=== PATIENT | male | born 1955 | race Caucasian/White ===

== ENCOUNTER 2024-05-11 13:32 | Inpatient (IN) | payer MEDICARE, OTHER, SELFPAY ==
[2024-05-11] VITALS (27 sets, daily range): BP systolic 66–157; BP diastolic 46–146; BMI 28.9; BMI 28.0
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
--- NOTE | 2024-05-11 09:37 | EDRN ---
Pt reports he always takes his BP on L arm, reports his last BP he recorded was approx 90/60. Pt unaware of BP on R arm being elevated.
[2024-05-11 09:47] LABS: % Basophils 0.2 % (0-2); % Immature Granulocytes 0.6 % (0-0.5); % Lymphocytes 9.8 % (20.5-51.1); % Monocytes 6.5 % (1.7-9.3); % Neutrophils 82.9 % (42.2-75.2); Absolute Immature Granulocytes 0.1 10^3/uL (0-0.05); Absolute Lymphocytes 1.3 10^3/uL (1.2-3.4); Absolute Monocytes 0.8 10^3/uL (0.1-0.6); Absolute Neutrophils 10.5 10^3/uL (1.4-6.5); Hematocrit 43.3 % (39.0-52.0); Mean Corp Hgb Conc. 32.3 g/dL (33.0-37.0); Mean Corpuscular Hgb 28.9 pg (27.0-31.0); Mean Corpuscular Volume 89.3 fL (80.0-94.0); Mean Platelet Volume 11.3 fL (7.4-10.4); Nucleated Red Blood Cells % 0 % (-); Platelet Count 249 10^3/uL (130-400); Red Blood Cell Count 4.85 10^6/uL (4.70-6.10); Red Cell Dist. Width 12.8 % (11.5-14.5); White Blood Cell Count 12.7 10^3/uL (4.8-10.8)
[2024-05-11 10:05] LABS: ALT (SGPT) 20 U/L (0-50); AST (SGOT) 21 U/L (17-59); Albumin 3.8 g/dl (3.5-5.0); Alkaline Phosphatase 82 U/L (38-126); Blood Urea Nitrogen 53 mg/dl (9-20); Calcium 8.8 mg/dl (8.4-10.2); Carbon Dioxide 16 mmol/L (22-30); Chloride 100 mmol/L (98-107); Estimated Creatinine Clearance 46 ml/min; Glucose 306 mg/dl (70-99); Potassium 4.8 mmol/L (3.5-5.1); Sodium 135 mmol/L (135-145); Total Bilirubin 0.8 mg/dl (0.2-1.3); Total Protein 6.5 g/dl (6.3-8.2); eGFR 54.07
[2024-05-11 10:18] LABS: NT-proBNP 9210 pg/ml
[2024-05-11] MEDS: LOW STRENGTH ASPIRIN 324 MG PO (10:33)
[2024-05-11] MEDS: LASIX 20 MG IV (10:55)
[2024-05-11 10:57] LABS: APTT 30.5 Sec (23.4-35.0)
[2024-05-11] MEDS: HEPARIN 4000 UNITS IV (10:58)
[2024-05-11] MEDS: HEPARIN 25000 UNITS/250 ML IV (11:00)
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
[2024-05-11] MEDS: LASIX 40 MG IV (16:40)
[2024-05-11 17:18] LABS: APTT 31.6 Sec (23.4-35.0)
[2024-05-11 19:43] LABS: Glucose - Point of Care 246 mg/dl (70-99)
[2024-05-11] MEDS: NOVOLOG FLEXPEN-LOW RESISTANCE SC (19:44)
[2024-05-11] MEDS: NOVOLOG FLEXPEN-LOW RESISTANCE 2 UNITS SC (19:45)
[2024-05-11 20:04] LABS: HDL Cholesterol 34 mg/dl; LDL Cholesterol, Calculated 115 mg/dl; Total Cholesterol 178 mg/dl (50-199); Triglyceride 149 mg/dl (10-149); Very Low Density Lipoprotein 29 mg/dl (0-30)
[2024-05-11] MEDS: CRESTOR 20 MG PO (20:22)
[2024-05-11 21:50] LABS: Glucose - Point of Care 219 mg/dl (70-99)
[2024-05-12] VITALS (23 sets, daily range): BP systolic 92–110; BP diastolic 60–80; PULSE 99; O2SAT 95; BMI 27.8
[2024-05-12] LABS: APTT 34.9 Sec (23.4-35.0)
--- NOTE | 2024-05-12 01:00 | PTCARENOTE ---
Pt admitted to room 2253 Pt AAOx3 . Pt. was able to transfer himself from stretcher to bed with minimal assist. Pt on Heparin gtt. Oriented to room. Safety measures in place.
[2024-05-12 06:51] LABS: APTT 41.5 Sec (23.4-35.0)
[2024-05-12 06:55] LABS: % Basophils 0.3 % (0-2); % Immature Granulocytes 1.5 % (0-0.5); % Lymphocytes 17.2 % (20.5-51.1); % Monocytes 8.6 % (1.7-9.3); % Neutrophils 72.4 % (42.2-75.2); Absolute Immature Granulocytes 0.2 10^3/uL (0-0.05); Absolute Neutrophils 8.6 10^3/uL (1.4-6.5); Hematocrit 38.1 % (39.0-52.0); Hemoglobin 13.3 g/dL (13.0-18.0); Mean Corp Hgb Conc. 34.9 g/dL (33.0-37.0); Mean Corpuscular Hgb 29.2 pg (27.0-31.0); Mean Corpuscular Volume 83.7 fL (80.0-94.0); Mean Platelet Volume 11.4 fL (7.4-10.4); Nucleated Red Blood Cells % 0 % (-); Platelet Count 210 10^3/uL (130-400); Red Blood Cell Count 4.55 10^6/uL (4.70-6.10); Red Cell Dist. Width 12.8 % (11.5-14.5); White Blood Cell Count 11.8 10^3/uL (4.8-10.8)
[2024-05-12 07:22] LABS: ALT (SGPT) 15 U/L (0-50); AST (SGOT) 21 U/L (17-59); Albumin 3.4 g/dl (3.5-5.0); Alkaline Phosphatase 75 U/L (38-126); Blood Urea Nitrogen 57 mg/dl (9-20); Calcium 8.7 mg/dl (8.4-10.2); Carbon Dioxide 17 mmol/L (22-30); Chloride 103 mmol/L (98-107); Estimated Creatinine Clearance 58 ml/min; Glucose 214 mg/dl (70-99); Potassium 4.3 mmol/L (3.5-5.1); Sodium 135 mmol/L (135-145); Total Bilirubin 0.6 mg/dl (0.2-1.3); Total Protein 6.2 g/dl (6.3-8.2); eGFR > 60.00
[2024-05-12] MEDS: HEPARIN 25000 UNITS/250 ML IV ×2 (07:32→21:58)
[2024-05-12 08:28] LABS: Glucose - Point of Care 237 mg/dl (70-99)
[2024-05-12] MEDS: NOVOLOG FLEXPEN-LOW RESISTANCE 2 UNITS SC ×3 (08:28→16:38)
[2024-05-12] MEDS: LASIX 40 MG IV ×2 (08:29→16:34)
[2024-05-12] MEDS: LOW STRENGTH ASPIRIN 81 MG PO (08:29)
[2024-05-12 08:58] LABS: Glycohemoglobin (HgbA1c) 8.6 % (4.0-5.6)
--- NOTE | 2024-05-12 09:19 | W.PN.CD ---
Today's Communication / Plan
-
Continue diuresis
Progress to cath today. Reviewed case in detail with Dr. Mishra
Cath is high risk given his active heart failure with low blood pressure and rising troponin
Impression / Plan
-
NSTEMI vs non-ischemic myocardial injury from heart failure:
- THe rising troponin is concerning. Will progress to cath today
- ASA/heparin
-continue IV heparin, which requires intensive monitoring
-will start statin, check lipids in AM. Check HGBA1C.
-will need heart catheterization; will arrange for tomorrow pending reassessment of patient and renal function
Acute HFrEF:
-agree with IV diuresis, which requires intensive monitoring- 40 mg IV BID
-weights, I/O's, BMP
-HF education
- Will add meds slowly after coronary status evaluated/treated and hemodynamics clarified
- BP soft. Likely will use HERNANDO-I over ARNI
ICM EF 10-15%:
-meds currently limited by BP and renal function
-will assess pricing for GDMT, so that it can be added when appropriate
Renal dysfunction:
-unknown baseline
-monitor with diuresis
DM:
-hold metformin for cath
-check HGBa1C
-otherwise, management per primary team
Subjective:
Dyspnea is improved.
Physical Exam
Vital Signs/Labs
Vital Signs
Temp Pulse Resp BP Pulse Ox
98.3 F 94 16 94/61 93
05/12/24 08:23 05/12/24 08:23 05/12/24 08:23 05/12/24 03:50 05/12/24 08:23
05/11/24 05/12/24 05/13/24
06:59 06:59 06:59
Actual Weight 80.4 kg
05/12/24 06:18
05/12/24 06:18
APTT 41.5 Sec (23.4-35.0) H 05/12/24 06:18
Triglycerides 149 mg/dl (10-149) 05/11/24 19:40
LDL Cholesterol, Calc 115 mg/dl 05/11/24 19:40
VLDL Cholesterol, Calc 29 mg/dl (0-30) 05/11/24 19:40
HDL Cholesterol 34 mg/dl 05/11/24 19:40
05/11/24
09:33
Mcj-G-Uiudraudjow Pept 9210
LAB Results
05/11/24 05/11/24 05/11/24
09:33 12:37 16:52
Troponin I 1.340 H* 1.260 H* 1.600 H* D
05/11/24 05/11/24
19:40 23:27
Troponin I 1.920 H* 2.110 H*
Physical Exam
Constitutional: No acute distress
EENT: Anicteric
Cardiovascular: Rhythm & rate is regular
Respiratory: Respiratory effort normal and Crackles Present
GI: Soft, Distention absent and Flat
Neuro/Psych: AO x 3 and Motor deficits absent
Data Reviewed
-
Date of Service: May 12, 2024
--- NOTE | 2024-05-12 09:45 | PTCARENOTE ---
Assumed care of pt from night RN. Pt received awake and alert, Ox3. VSS, CM shows NSR with BBB, POX 96% on RA. Fine crackles noted bibasilarly. Heparin infusing through RAC at 1600 units/hr, next PTT due at 1315. Pt remains NPO for CC today.
--- NOTE | 2024-05-12 11:06 | CM ---
Chart reviewed. Patient is independent of ADLS, lives with his in a [address], 2 [facility], 0 DME. Plan is for the patient to return home. CM to follow
--- NOTE | 2024-05-12 11:06 | CM ---
Pricing on Farxiga 10mg daily is $11 for a 30 day supply
Jardiance 10mg daily is $11 for a 30 day supply.
Entresto 24/26mg BID is covered at $157.55 for a 30 day supply.
Patient is agreeable to cost. I placed a free 30 day coupon in the patient's red discharge folder.
[2024-05-12 12:20] LABS: Glucose - Point of Care 218 mg/dl (70-99)
[2024-05-12 14:04] LABS: APTT 51.6 Sec (23.4-35.0)
--- NOTE | 2024-05-12 15:45 | ITS.CL.CATH ---
Litigation Support Analyst - Catheterization
Cardiac Catheterization
Procedure Report:
CARDIAC CATHETERIZATION REPORT
Date of Procedure: 05/12/2024
Referring: Acosta Sousa MD
Indication: Severe left ventricular dysfunction with mildly elevated troponin levels
�
HEMODYNAMIC DATA (RHC performed at weight 177 pounds)
AO: 90/62
LV: 90/12
PCWP: 14
PA: 30/15
RV: 30/12
RA: 8
Oximetry: Ao 94%, PA 65%, cardiac output 4.6, cardiac index 2.4
�
LEFT VENTRICULOGRAPHY: Anterolateral and apical akinesis with severe inferior hypokinesis. The estimated LVEF is 25% with mild mitral regurgitation
�
CORONARY ANGIOGRAPHY
Dominance: Right
Left Main: Calcified without stenosis
LAD: The LAD is severely calcified. There is 80% LAD stenosis just distal to the takeoff of the first septal home health physical therapist. There is a relatively long 80% mid LAD stenosis. In the distal LAD there is a diseased segment estimated to be 70% in
severity which happens to be within an endomyocardial bridge segment with a dynamic stenosis exceeding 90%. The apical LAD tapers to occlusion proximal to the LV apex. The first diagonal branch is moderate in distribution with severe diffuse
disease. The second diagonal branch is tiny.
Circumflex: There is 80% mid circumflex stenosis distal to the takeoff of a large OM1 and proximal to the takeoff of a large OM 2. OM1 has 50% ostial and 70-80% mid stenoses. OM 2 has 40% proximal stenosis and focal 70% mid stenosis. The distal
circumflex terminates with a single diffusely diseased posterolateral branch
RCA: 80% proximal stenosis with occlusion of the RCA in the midportion. There are faint collaterals to a diseased RPDA and several diseased RPL vessels
�
Closure Device: None-the procedure was performed via the right radial artery and right femoral vein
�
Radiation dose (mGy): 343
DAP (cm2.Gy): 31.8
Fluoroscopy time: 2.5 minutes
�
CONCLUSIONS:
1. Normal filling pressures with no pulmonary hypertension
2. The patient appears euvolemic to dry. His ideal weight would be 177 pounds
3. Anterolateral and apical akinesis with severe inferior hypokinesis with EF 25%
4. Mild mitral regurgitation
5. Severe calcific multisegment triple-vessel CAD as described
�
RECOMMENDATIONS: Revascularization options are very limited here. He is not likely a candidate for any type of surgical revascularization. There is no clear benefit of high risk multivessel stenting for him. At this point recommend medical
therapy with consideration of referral for destination LVAD if CHF cannot be managed medically. Medication options are limited with borderline hypotension at baseline. There is no clear role for biventricular pacing based on his electrocardiogram.
Consideration can be given to ICD placement if LVEF remains severely depressed after a period of medical therapy.
�
Copy to: Acosta Sousa MD, Bert Kelly IV, MD
�
Gene Mishra MD, [facility], [facility]
[2024-05-12] MEDS: NSS 1000 IV (15:57)
--- NOTE | 2024-05-12 16:11 | W.PN.HOSP.TC ---
Today's Communication/Plan
-
Cont IV diuresis
ICD as per cardiology
Hep ggt
Antiplatelets as per cards
statin
anticipate initiation of BB, SGTL2i and ARNI if BP tolerates along with diuresis
Assessment / Plan
Assessment / Plan
Physical Exam
General: Well Developed, Well Nourished and No Apparent Distress
HEENT: NormoCephalic
Respiratory: Crackles (Mild bilateral bases)
Cardiac: S1/S2 and Regular Rhythm
GI: Soft and Non Tender
Musculoskeletal: No Clubbing
Skin: Warm
Neuro: Awake, Alert, Oriented and AO x 3
Hematologic/Lymphatic: No Lymphadenopathy
Psych: Calm
68-year-old male with past medical history of hypertension, diabetes now presents for worsening dyspnea exertion, admitted for NSTEMI and acute HFrEF.
PLAN:
#NSTEMI
#CAD
-Left heart cath 12/evere triple-vessel disease, revascularization options are limited; not likely candidate for surgical revascularization;
� Medical therapy with consideration of referral for destination LVAD if CHF cannot be managed medically
� ASA
� Statin
� Follow-up hemoglobin A1c�8.6
- Cont hep ggt x 48 hours or until cardiology decides
#Acute HFrEF
#EF 10 to 15%
� Continue IV diuresis, monitor BMP, renal function
� Left heart cath as above
� May need referral for destination LVAD if CHF cannot be managed medically
� ICD as per cardiology
# EDIS
� Most likely cardiorenal
� Monitor with diuresis
#Hypertension
� Hold lisinopril in setting of unknown baseline renal function along with lower blood pressures
� Monitor with diuresis
#Diabetes, type II
� Hold metformin
� Follow-up hemoglobin A1c�8.6
� Will benefit from stronger regimen, SGLT2 inhibitor
� Insulin sliding scale
DVT prophylaxis
� Heparin drip
Total time spent on today's encounter was 51 minutes which included time spent in counseling the patient/family regarding diagnosis and treatment plan as listed above, goals of care, and symptom management. Case was discussed with nursing staff,
specialists, and care coordinators/case management. All labs and imaging personally reviewed by me. Remainder the time spent in detailed review of previous records, lab data, imaging, and other medical provider documentation.
Anticipated Discharge: 24 - 48 hours
Subjective/Interval History
-
Date of Service: May 12, 2024
for [facility] today
Diuresing
no acute events overnight
Objective Data
-
Labs:
Laboratory Results
05/12/24 05/12/24 05/12/24
06:18 13:07 20:00
WBC 11.8 H
Hgb 13.3
Hct 38.1 L
Plt Count 210
APTT 41.5 H 51.6 H Pending
Sodium 135
Potassium 4.3
Chloride 103
Carbon Dioxide 17 L
BUN 57 H
Creatinine 1.1
Glucose 214 H
Calcium 8.7
Total Bilirubin 0.6
AST 21
ALT 15
Alkaline Phosphatase 75
Vital Signs:
Vital Signs
Temp Pulse Resp BP Pulse Ox
97.6 F 92 18 97/62 95
05/12/24 12:12 05/12/24 14:00 05/12/24 12:12 05/12/24 12:12 05/12/24 12:12
I&O
05/11/24 05/12/24 05/13/24
06:59 06:59 06:59
Intake Total 135 / 135
Output Total 1150 / 1150
Balance -1015 / -1015
Review of Systems
-
History Source: Patient
All other systems: Not reviewed unless documented
Data Reviewed
-
Diagnostic Radiology: Report Reviewed by me
Medical Tests (Nuc Med, Echo etc): Report Reviewed by me
Labs: Labs Reviewed by me
[2024-05-12 16:43] LABS: Glucose - Point of Care 213 mg/dl (70-99)
[2024-05-12] MEDS: CRESTOR 20 MG PO (17:12)
[2024-05-12 20:43] LABS: APTT 26.3 Sec (23.4-35.0)
[2024-05-12 21:42] LABS: Glucose - Point of Care 169 mg/dl (70-99)
[2024-05-13 03:58] VITALS: BP 97/64
[2024-05-13 04:13] VITALS: BMI 27.2
[2024-05-13 04:37] LABS: Hematocrit 39.2 % (39.0-52.0); Hemoglobin 13.6 g/dL (13.0-18.0); Mean Corp Hgb Conc. 34.7 g/dL (33.0-37.0); Mean Corpuscular Hgb 29.1 pg (27.0-31.0); Mean Corpuscular Volume 83.9 fL (80.0-94.0); Mean Platelet Volume 11.2 fL (7.4-10.4); Platelet Count 215 10^3/uL (130-400); Red Blood Cell Count 4.67 10^6/uL (4.70-6.10); Red Cell Dist. Width 12.7 % (11.5-14.5); White Blood Cell Count 9.8 10^3/uL (4.8-10.8)
[2024-05-13 05:00] LABS: Blood Urea Nitrogen 51 mg/dl (9-20); Calcium 8.6 mg/dl (8.4-10.2); Carbon Dioxide 20 mmol/L (22-30); Chloride 102 mmol/L (98-107); Estimated Creatinine Clearance 54 ml/min; Glucose 189 mg/dl (70-99); Potassium 4.2 mmol/L (3.5-5.1); Sodium 136 mmol/L (135-145); eGFR > 60.00
--- NOTE | 2024-05-13 06:02 | PTCARENOTE ---
Addendum entered by Heidy Mcneill RN 05/13/24 06:04:
Pt place on O2 2L to maintain his PlOx above 92% overnight
Original Note:
pt in NSR on monitor. resting comfortable, denies pain or SOB. Heparin gtt restarted per order. Safety measures in place
[2024-05-13 07:52] VITALS: BP 92/80
[2024-05-13 07:58] LABS: Glucose - Point of Care 196 mg/dl (70-99)
[2024-05-13] MEDS: NOVOLOG FLEXPEN-LOW RESISTANCE 1 UNITS SC (08:34)
[2024-05-13] MEDS: LASIX 40 MG IV (08:35)
[2024-05-13 08:36] VITALS: BP 108/70
[2024-05-13] MEDS: LOW STRENGTH ASPIRIN 81 MG PO (08:37)
[2024-05-13] MEDS: FLUSH (NSS) 1 FLUSH IV (08:37)
--- NOTE | 2024-05-13 09:17 | W.PN.CD ---
Today's Communication / Plan
-
Home today. Home on current meds (I resumed Lisinopril and added metoprolol ER and moved to PO furosemide)
As outpatient will be adding SGLT2-I and MRA and titrate BB nad HERNANDO-I to max dose. Later if BP room may try ARNI over HERNANDO-I
Hope his PCP will start Ozempic for his DM/HF/CAD
Once on max meds will check LVEF and see if an ICD will be offered
F/u up with me in 1 week (see discharge section).
55 min spent today with extensive education / counselling with pt / family etc.
Impression / Plan
-
NSTEMI vs non-ischemic myocardial injury from heart failure:
- Severe CAD at cath, no clear culprit
- Still hard to know if this was a NSTEMI or non-ischemic myocardial injury from heart failure. I favor a NSTEMI c/b acute on chronic HF as the best discharge diagnosis
- He will need aggressive treatment for HF and CAD
Acute HFrEF, severe reduction in LVEF
- Dry weight 177 pounds
Severe 3 V CAD, not amenable to CABG, no clear single lesion culprit for PCI
Ischemic cardiomyopathy, severe
- He will be an ICD candidst
Mitral regurgitation, moderate at echo and after diuresis mild at cath
Renal: Cr 1.4 on admit and after diuresis 1.1-1.2
Mixed hyperlipidemia, now on statin, goal LDL at least less than 70
DM
- I told pt that he should ask his PCP to stop his glipizide and start him on Ozempic
BMI 27
Subjective:
Dyspnea is improved. No cath complications
Data:
Echo 05/11/2024:
Severely reduced left ventricular systolic function.
Left ventricular ejection fraction is 10-15% by Obregon's method.
The anterolateral morin contract the best. The rest of the LV is akinetic to
severely hypokinetic.
Moderate mitral regurgitation.
Estimated PASP 40-45 mmHg with estimated RA of 3 mmHg.
No prior study available for comparison.
Cath 05/12/2024:
HEMODYNAMIC DATA (RHC performed at weight 177 pounds)
AO: 90/62
LV: 90/12
PCWP: 14
PA: 30/15
RV: 30/12
RA: 8
Oximetry: Ao 94%, PA 65%, cardiac output 4.6, cardiac index 2.4
�
LEFT VENTRICULOGRAPHY: Anterolateral and apical akinesis with severe inferior hypokinesis. The estimated LVEF is 25% with mild mitral regurgitation
�
CORONARY ANGIOGRAPHY
Dominance: Right
Left Main: Calcified without stenosis
LAD: The LAD is severely calcified. There is 80% LAD stenosis just distal to the takeoff of the first septal cryptographic clerk. There is a relatively long 80% mid LAD stenosis. In the distal LAD there is a diseased segment estimated to be 70% in
severity which happens to be within an endomyocardial bridge segment with a dynamic stenosis exceeding 90%. The apical LAD tapers to occlusion proximal to the LV apex. The first diagonal branch is moderate in distribution with severe diffuse
disease. The second diagonal branch is tiny.
Circumflex: There is 80% mid circumflex stenosis distal to the takeoff of a large OM1 and proximal to the takeoff of a large OM 2. OM1 has 50% ostial and 70-80% mid stenoses. OM 2 has 40% proximal stenosis and focal 70% mid stenosis. The distal
circumflex terminates with a single diffusely diseased posterolateral branch
RCA: 80% proximal stenosis with occlusion of the RCA in the midportion. There are faint collaterals to a diseased RPDA and several diseased RPL vessels
�
Physical Exam
Vital Signs/Labs
Vital Signs
Temp Pulse Resp BP Pulse Ox
98.1 F 94 18 108/70 97
05/13/24 07:55 05/13/24 08:45 05/13/24 07:55 05/13/24 08:36 05/13/24 07:55
05/12/24 05/13/24 05/14/24
06:59 06:59 06:59
Actual Weight 80.4 kg 78.7 kg
05/13/24 04:06
05/13/24 04:06
APTT 32.0 Sec (23.4-35.0) 05/13/24 04:06
Triglycerides 149 mg/dl (10-149) 05/11/24 19:40
LDL Cholesterol, Calc 115 mg/dl 05/11/24 19:40
VLDL Cholesterol, Calc 29 mg/dl (0-30) 05/11/24 19:40
HDL Cholesterol 34 mg/dl 05/11/24 19:40
05/11/24
09:33
Gfy-[id number]-Oplaatupdeq Pept 9210
LAB Results
05/11/24 05/11/24 05/11/24
09:33 12:37 16:52
Troponin I 1.340 H* 1.260 H* 1.600 H* D
05/11/24 05/11/24 05/12/24
19:40 23:27 14:38
Troponin I 1.920 H* 2.110 H* 2.010 H*
Physical Exam
Constitutional: No acute distress and Comfortable
EENT: Anicteric
Cardiovascular: Rhythm & rate is regular and Pedal edema is absent
Respiratory: Respiratory effort normal and Lungs clear to auscul.
GI: Distention absent
Neuro/Psych: AO x 3
Other: Cath Site (no hematoma/bleeding)
Data Reviewed
-
Date of Service: May 13, 2024
--- NOTE | 2024-05-13 10:33 | W.HF.CON ---
Heart Failure
- LV Function
Left ventricular function study result: LV Ejection fraction </= 35%
Ejection Fraction Percentage: 10-15
- ARNI
Patient already on ARNI: No
Heart Failure ARNI Contraindication: Hypotension
- ACEI/ARB
Patient already on ACEI/ARB: Yes
- Beta Shyla
Patient already on Evidence Based Beta Shyla: Yes
- Mineralocorticord Receptor Antagonist
Patient already on MRA: No
Heart Failure MRA Contraindication: Hypotension
- SGLT-2 Inhibitor
Patient already on SGLT-2 Inhibitor: No
Heart Failure SGLT-2 Inhibitor Contraindication: Patient Refusal
- NYHA CHF Classification
NYHA CHF Classification Level: Class III - Symptoms w/ min exertion, interferes w/ nml daily activity
- ACC/AHA Stage
ACC/AHA Stage: Stage C: Symptomatic Heart Failure
--- NOTE | 2024-05-13 11:00 | PTCARENOTE ---
Received patient this morning oob in the chair, denies any chest pain or sob. IV heparin infusing at 1200 units/hr. Patient seen by cardiology and is ok for discharge home on PO medications. Hospitalist now in and will discharge the patient, family
at the bedside.
[2024-05-13 12:11] VITALS: BP 104/72
--- NOTE | 2024-05-13 13:46 | W.PN.HOSP.TC ---
Addendum entered and electronically signed by Rob Byrd MD 05/14/24 16:18:
[id number]
Original Note:
Today's Communication/Plan
-
Aspirin
0 back lisinopril
Add metoprolol
Add p.o. furosemide
SGLT2-I and MRA and titrate BB nad HERNANDO-I to max dose. outpt
Possible Ozempic for diabetes, heart failure, CAD outpatient
ICD once medical optimization achieved
Follow-up cardiology 1 week
Follow BMP in 1 week
Follow-up PCP within 1 week
Assessment / Plan
Assessment / Plan
Physical Exam
General: Well Developed, Well Nourished and No Apparent Distress
HEENT: NormoCephalic
Respiratory: Crackles (Mild bilateral bases)
Cardiac: S1/S2 and Regular Rhythm
GI: Soft and Non Tender
Musculoskeletal: No Clubbing
Skin: Warm
Neuro: Awake, Alert, Oriented and AO x 3
Hematologic/Lymphatic: No Lymphadenopathy
Psych: Calm
68-year-old male with past medical history of hypertension, diabetes now presents for worsening dyspnea exertion, admitted for NSTEMI and acute HFrEF.
PLAN:
#NSTEMI
#CAD
� Most likely secondary to acute on chronic heart failure
-Left heart cath evere triple-vessel disease, revascularization options are limited; not likely candidate for surgical revascularization;
� Medical therapy with consideration of referral for destination LVAD if CHF cannot be managed medically
� ASA
� Statin
� Follow-up hemoglobin A1c�8.6
- Cont hep ggt x 48 hours
�Started on aspirin, added back lisinopril, and metoprolol ER
� Start p.o. furosemide
#Acute HFrEF
#EF 10 to 15%
� Continue IV diuresis, monitor BMP, renal function
� Left heart cath as above
� May need referral for destination LVAD if CHF cannot be managed medically
� ICD as per cardiology once medically optimized
-As outpatient will be adding SGLT2-I and MRA and titrate BB nad HERNANDO-I to max dose.
-BB, ACEI
-Switch to PO lasix
-BMP in 1 week with pcp/cardiology
-F?u cards outpatient
# EDIS
� Most likely cardiorenal
� Monitor with diuresis
#Hypertension
�ACEI
� Monitor with diuresis
#Diabetes, type II
� Hold metformin
� Follow-up hemoglobin A1c�8.6
� Will benefit from stronger regimen, SGLT2 inhibitor
� Insulin sliding scale
-Hopeful ozempic as outpatient
More than 30 minutes spent in discharge including
Final examination of the patient
Summarizing hospital stay
Instructions for continuing care to all relevant caregivers
Preparation of discharge records, prescriptions, and referral forms
Total time spent (35 in minutes):
Anticipated Discharge: Today
Subjective/Interval History
-
Date of Service: May 13, 2024
Doing well post cath
Objective Data
-
Labs:
Laboratory Results
05/13/24 05/13/24
04:06 11:40
WBC 9.8
Hgb 13.6
Hct 39.2
Plt Count 215
APTT 32.0 Cancelled
Sodium 136
Potassium 4.2
Chloride 102
Carbon Dioxide 20 L
BUN 51 H
Creatinine 1.2
Glucose 189 H
Calcium 8.6
Vital Signs:
Vital Signs
Temp Pulse Resp BP Pulse Ox
98.1 F 90 18 104/72 95
05/13/24 12:11 05/13/24 13:00 05/13/24 12:11 05/13/24 12:11 05/13/24 12:11
I&O
12/03/24 12/04/24 12/05/24
06:59 06:59 06:59
Intake Total 135 / 135 1245 / 1245 360 / 360
Output Total 1150 / 1150 1075 / 1075 200 / 200
Balance -1015 / -1015 170 / 170 160 / 160
Review of Systems
-
History Source: Patient
All other systems: Not reviewed unless documented
Data Reviewed
-
Diagnostic Radiology: Report Reviewed by me
Medical Tests (Nuc Med, Echo etc): Report Reviewed by me
Labs: Labs Reviewed by me
[2024-05-13] MEDS: NOVOLOG FLEXPEN-LOW RESISTANCE SC (13:47)
--- NOTE | 2024-05-13 13:50 | W.DS.TRANS ---
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
-
Discharge Instructions:
Sleep Apnea Risk Intermediate
Discharge Diagnosis/Procedures Cardiac cath
HFrEF
Diet Low Cholesterol,2 Gram Sodium,Restrict fluids to
48 oz
Driving Restrictions No driving for 24 hours
Blood Work bmp in 1 week with pcp/cardiology
Instructions: *CBC Heart Failure Instructions
Stand-Alone Forms: DC Instructions- Cath/EP Lab
Changes to Home Medications: Yes
Discharge Medications:
DC Medications w/original date entered in [employer]
Super Beets 1 tab PO DAILY Supplement 05/11/24
glipizide 2.5 mg tablet, extended release 24 hr 2.5 mg PO DAILY Diabetes 05/11/24
lisinopril 10 mg tablet 10 mg PO DAILY Blood Pressure 05/11/24
metformin 1,000 mg tablet 1,000 mg PO BID Diabetes 05/11/24
aspirin 81 mg chewable tablet 81 mg PO DAILY #30 tabs 05/13/24
furosemide 40 mg tablet 40 mg PO DAILY 30 days #30 tabs 05/13/24
metoprolol succinate 25 mg tablet,extended release 24 hr 25 mg PO DAILY #30 tabs 05/13/24
rosuvastatin 20 mg tablet 20 mg PO QPM #30 tabs 05/13/24
Home Medication Changes
aspirin 81 mg chewable tablet 81 mg PO DAILY #30 tabs 05/13/24
furosemide 40 mg tablet 40 mg PO DAILY 30 days #30 tabs 05/13/24
metoprolol succinate 25 mg tablet,extended release 24 hr 25 mg PO DAILY #30 tabs 05/13/24
rosuvastatin 20 mg tablet 20 mg PO QPM #30 tabs 05/13/24
Pending Results: No
--- NOTE | 2024-05-13 14:15 | PTCARENOTE ---
Reviewed discharge instructions with the patient and his family and he states his understanding. Patient is aware of follow up appointments, new medications, HF guidelines and need for lab work in one week. Patient discharged home with his family.
== END 2024-05-13 14:21 | disposition home or self-care (01) | DRG 280 ==
LOC: IVU 13:32
PROVIDERS: Internal Medicine Cardiovascular Disease; Nurse Practitioner Adult Health; Physician Assistant; ADMITTING PHYSICIAN Internal Medicine; CONSULT PHYSICIAN Internal Medicine Cardiovascular Disease; EMERGENCY PHYSICIAN Emergency Medicine; FAMILY PHYSICIAN Family Medicine
PROC: B2151ZZ Fluoroscopy of Left Heart using Low Osmolar Contrast (ICD-10-PCS; 2024-05-12)
PROC: B2111ZZ Fluoroscopy of Multiple Coronary Arteries using Low Osmolar Contrast (ICD-10-PCS; 2024-05-12)
PROC: 4A023N7 Measurement of Cardiac Sampling and Pressure, Left Heart, Percutaneous Approach (ICD-10-PCS; 2024-05-12)
DX: I21.4 Non-ST elevation (NSTEMI) myocardial infarction (principal); I50.21 Acute systolic (congestive) heart failure; I13.0 Hypertensive heart and chronic kidney disease with heart failure and stage 1 through stage 4 chronic kidney disease, or unspecified chronic kidney disease; N17.9 Acute kidney failure, unspecified; N18.9 Chronic kidney disease, unspecified; E78.2 Mixed hyperlipidemia; E11.22 Type 2 diabetes mellitus with diabetic chronic kidney disease; I25.5 Ischemic cardiomyopathy; I34.0 Nonrheumatic mitral (valve) insufficiency; I25.10 Atherosclerotic heart disease of native coronary artery without angina pectoris; Z87.891 Personal history of nicotine dependence; Z79.84 Long term (current) use of oral hypoglycemic drugs
CPT/HCPCS: 71046; 80048; 80053; 80061; 82962; 83036; 83880; 84484; 85025; 85027; 85730; 93005; 93306; 93460; 96374; 96375; 97162; 97166; 99285; C1894; Q9967

== ENCOUNTER → 2024-06-19 08:16 | Outpatient (REF) | payer MEDICARE, OTHER, SELFPAY ==
[2024-06-19 13:13] LABS: Blood Urea Nitrogen 49 mg/dl (9-20); Calcium 9.7 mg/dl (8.4-10.2); Carbon Dioxide 25 mmol/L (22-30); Chloride 97 mmol/L (98-107); Glucose 176 mg/dl (70-99); Potassium 5.1 mmol/L (3.5-5.1); Sodium 136 mmol/L (135-145); eGFR 49.47
== END ==
LOC: HWLAB 08:16
PROVIDERS: ATTENDING PHYSICIAN Internal Medicine Cardiovascular Disease; FAMILY PHYSICIAN Family Medicine
DX: I50.22 Chronic systolic (congestive) heart failure (principal)
CPT/HCPCS: 36415; 80048

== ENCOUNTER 2024-08-04 17:49 | Inpatient (IN) | payer MEDICARE, OTHER, SELFPAY ==
[2024-08-04] VITALS (32 sets, daily range): BP systolic 74–93; BP diastolic 49–75; BMI 23.7; BMI 25.2
[2024-08-04 13:41] LABS: % Basophils 0.2 % (0-2); % Immature Granulocytes 0.7 % (0-0.5); % Lymphocytes 12.2 % (20.5-51.1); % Monocytes 5.7 % (1.7-9.3); % Neutrophils 81.2 % (42.2-75.2); Absolute Immature Granulocytes 0.1 10^3/uL (0-0.05); Absolute Lymphocytes 1.3 10^3/uL (1.2-3.4); Absolute Monocytes 0.6 10^3/uL (0.1-0.6); Absolute Neutrophils 8.7 10^3/uL (1.4-6.5); Hematocrit 35.2 % (39.0-52.0); Mean Corp Hgb Conc. 31.3 g/dL (33.0-37.0); Mean Corpuscular Hgb 28.1 pg (27.0-31.0); Mean Platelet Volume 11.2 fL (7.4-10.4); Nucleated Red Blood Cells % 0 % (-); Platelet Count 219 10^3/uL (130-400); Red Blood Cell Count 3.91 10^6/uL (4.70-6.10); White Blood Cell Count 10.7 10^3/uL (4.8-10.8)
[2024-08-04 14:03] LABS: AST (SGOT) 22 U/L (17-59); Albumin 4.1 g/dl (3.5-5.0); Alkaline Phosphatase 71 U/L (38-126); Blood Urea Nitrogen 53 mg/dl (9-20); Calcium 9.6 mg/dl (8.4-10.2); Carbon Dioxide 14 mmol/L (22-30); Chloride 96 mmol/L (98-107); Glucose 280 mg/dl (70-99); Potassium 4.8 mmol/L (3.5-5.1); Sodium 131 mmol/L (135-145); Total Bilirubin 0.9 mg/dl (0.2-1.3); Total Protein 6.4 g/dl (6.3-8.2); eGFR 49.47
[2024-08-04 14:06] LABS: ALT (SGPT) 30 U/L (0-50)
[2024-08-04 14:08] LABS: Troponin I 0.961 ng/ml
[2024-08-04 15:19] LABS: NT-proBNP > 27000 pg/ml
--- NOTE | 2024-08-04 15:40 | ED.GENMED ---
History of Present Illness
General
Chief Complaint: Breathing Problem
Time Seen by Provider: 08/04/24 14:02
History of Present Illness
History of Present Illness:
69-year-old male with history of CHF on Lasix, diabetes, CAD, hypertension presenting for increasing dyspnea. Patient notes symptoms for the past 2 days. Reports associated orthopnea and dyspnea with minimal exertion. Notes that he was seen in
May for chest pain, was found to have an NSTEMI. Had a catheterization with multivessel disease, not a candidate for surgery. At that time he was told he had a low EF. Denies any swelling to his extremities. Denies any history of blood
clots. Denies any fever or cough. Notes that his blood pressure is chronically low. Denies additional acute medical complaints
Phy Exam
Physical Exam
Physical Exam:
General: Well-appearing, no clinical signs of dehydration, nontoxic and in no acute distress
HEENT: protecting airway
Neck: appears supple
CV: Tachycardic, regular rhythm, no evidence of cyanosis
Resp: No accessory muscle use, no increased work of breathing, crackles bilaterally
Abd: Soft and non-distended, no tenderness to palpation
Extremities: No deformities, no swelling
Neuro: alert, no focal neurologic deficit
: deferred
Rectal: deferred
Psych: Normal affect
Skin: Intact
Scores
Heart Failure Risk
Heart Failure Risk Score: Yes
History of Stroke or TIA: No
History of intubation for respiratory distress: No
Heart rate on ED arrival >/= 110: Yes
SaO2 <90% on arrival on room air: No
HR >/=110 during 3min walk test (or too ill to perform test): Yes
ECG has acute ischemic changes: No
Urea >/=12mmol/L (BUN 33.6mg/dL): No
Serum CO2>/=35mmol/L: No
Troponin I or T elevated to MA Level (0.4mg/dL): Yes
NT-proBNP >/=5,000ng/L (5,000pg/ml): Yes
HF Risk Score: 5
Admission Status: VERY HIGH RISK 39.8% Consider admission to hospital
Sepsis
Sepsis Screening
Sepsis Assessment: Sepsis Ruled Out
Sepsis Screen
Sepsis Screen: Sepsis Ruled Out
Date: 08/04/24
Time: 15:54
Course
Orders/Labs/Results
Orders:
Orders
08/04/24 13:03
Electrocardiogram (*1) Urgent
Reason for Study: Shortness of Breath
EKG- Treatment ONCE
08/04/24 13:26
CMP [Comprehensive Metabolic Panel] Urgent
Complete Blood Count/With Diff Urgent
Troponin I Urgent
08/04/24 13:34
CXR2 [CR Chest - 2 Views ] Urgent
Comment:
Reason For Exam: SOB
08/04/24 14:34
CT Chest PE Study Urgent
Comment:
Reason For Exam: tachy, hypotension, SOB, CHF
08/04/24 14:53
NT-proBNP Urgent
Abnormal Lab Results
08/04/24
13:26
RBC 3.91 L 10^6/uL
(4.70-6.10)
Hgb 11.0 L g/dL
(13.0-18.0)
Hct 35.2 L %
(39.0-52.0)
MCHC 31.3 L g/dL
(33.0-37.0)
RDW 15.0 H %
(11.5-14.5)
MPV 11.2 H fL
(7.4-10.4)
Abs Immat Gran (auto) 0.1 H 10^3/uL
(0-0.05)
Absolute Neuts (auto) 8.7 H 10^3/uL
(1.4-6.5)
Immature Gran % 0.7 H %
(0-0.5)
Neutrophils % 81.2 H %
(42.2-75.2)
Lymphocytes % 12.2 L %
(20.5-51.1)
Sodium 131 L mmol/L
(135-145)
Chloride 96 L mmol/L
(98-107)
Carbon Dioxide 14 L* mmol/L
(22-30)
BUN 53 H mg/dl
(9-20)
Creatinine 1.5 H mg/dL
(0.7-1.3)
Glucose 280 H mg/dl
(70-99)
Troponin I 0.961 H* ng/ml
08/04/24 13:26
08/04/24 13:26
Vital Signs
Initial and Last Documented VS:
Initial Vital Signs
Temp Pulse Resp BP Pulse Ox
97.5 F 118 24 93/67 100
08/04/24 13:13 08/04/24 13:13 08/04/24 13:13 08/04/24 13:13 08/04/24 13:13
Last Documented Vital Signs
Temp Pulse Resp BP Pulse Ox
97.5 F 116 22 82/73 97
08/04/24 13:13 08/04/24 15:45 08/04/24 15:45 08/04/24 15:37 08/04/24 15:45
MDM/Problems Addressed
MDM/Problems Addressed:
69-year-old male with history of CHF on Lasix, diabetes, CAD, hypertension presenting for increasing dyspnea for 2 days. Vital signs on arrival significant for tachycardia and hypotension, however patient reports hypotension is chronic.
On exam patient is in no acute respiratory distress. Symptom presentation and physical exam appears most consistent with acute on chronic CHF. On review of EMR, known CHF. Patient notes orthopnea, dyspnea with minimal exertion, crackles on exam.
EKG obtained on arrival, sinus tachycardia, no significant change from prior. Patient had laboratory analysis prior to my assessment, troponin is elevated. Patient is currently without chest pain, no significant ischemic changes from prior EKG.
Without present concern for ACS. Suspect likely ischemic demand from heart failure. Chest x-ray also obtained prior to my assessment, does show element of pulmonary edema. Will add BNP. Will also plan for CT of the chest in the setting of
tachycardia and shortness of breath to ensure no PE. Ultimate plan for admission
15:45 - BNP is markedly elevated, increased from prior. CT shows moderate pleural effusions bilaterally. Again concern for acute on chronic CHF. Plan for admission for diuresis, however will possibly require medication for blood pressure
augmentation prior to Lasix administration.
*EKG
Interpreted by ED Provider?: Yes
EKG Intrepretation Date: 08/04/24
EKG Intrepretation Time: 15:43
Interpretation: abnormal
Comparison EKG: no changes (05/12/24)
Heart Rate: 116
Rhythm: sinus
[place]: left axis deviation
Interval: normal interval
QRS Pattern: left bundle branch block
Ischemia: non-specific ST changes
*Critical Care Note
Total Time (30-74mins, 75-104mins- exclusive of procedures): Not Applicable
ED Attending Note
-
Portions of this chart may have been created with voice recognition software.� Occasional wrong word or��sound alike� substitutions may have occurred due to the inherent limitations of voice recognition software.
Discharge Plan
Departure
Prescriptions:
No Action
glipizide 2.5 mg Tablet Extended Release 24hr
2.5 mg PO DAILY
lisinopril 10 mg Tablet
10 mg PO DAILY
Super Beets tablet
1 tab PO DAILY
metformin 1,000 mg Tablet
1,000 mg PO BID
furosemide 40 mg Tablet
40 mg PO DAILY 30 Days Qty: 30 0RF
aspirin 81 mg Tablet,Chewable
81 mg PO DAILY Qty: 30 0RF
metoprolol succinate 25 mg Tablet Extended Release 24 Hr
25 mg PO DAILY Qty: 30 0RF
rosuvastatin 20 mg Tablet
20 mg PO QPM Qty: 30 0RF
Referrals:
Bert Kelly IV, MD [Family Provider] -
Interventions
Interventions:
*Risk Screen - Suicide Last Done: 08/04/24 13:13
*General Assessment Last Done: 08/04/24 14:09
*Neglect/Abuse Screening Last Done: 08/04/24 13:13
ED- Fall Risk Assessment Last Done: 08/04/24 14:09
*ED COVID-19 Vaccine History Last Done: 08/04/24 13:13
ED- Cardiac Assessment Last Done: 08/04/24 14:10
ED- Pulmonary Assessment Last Done: 08/04/24 14:10
Discharge Date and Time
Print Language: ROMANIAN
--- NOTE | 2024-08-04 16:26 | HPS.HSE ---
Family Physician
-
Family Physician: Bert Kelly IV, MD
Chief Complaint
-
dyspnea
History of Present Illness
Patient is a 69-year-old male with past medical history significant for HFrEF, CAD, benign hypertension, and DMI II who presented to [facility] ED for evaluation of dyspnea with exertion and when laying flat. He reports nausea and emesis
when he got up from laying down today. He states symptoms started over the weekend and were significantly worse today which is why he came for evaluation. He does claim that sometimes he will have dizziness when standing from a sitting position.
Patient denies any fever, chills, chest pain, constipation, diarrhea or urinary symptoms.
Medical History
Past Medical History
Past Medical History: Reports Other
Additional Past Medical History:
HFrEF
CAD
benign hypertension
DMI II
Past Surgical History: Reports Other
Additional Past Surgical History:
cardiac cath
Social History
Tobacco: Former Smoker (quit 10 years ago )
Alcohol: None
Drug: None
Personal:
Living: With Family
Employment: Employed
Family History
Family History: Adopted
Allergies / Home Medications
Allergies reflects when Allergies were last updated in [employer].
Home Medications with original date entered in [employer]
Allergy/Medication List:
Allergies
Allergy/AdvReac Type Severity Reaction Status Date / Time
No Known Allergies Allergy Verified 08/04/24 13:19
Home Medications
metformin 1,000 mg tablet 1,000 mg PO BID Diabetes 05/11/24
aspirin 81 mg chewable tablet 81 mg PO DAILY #30 tabs 05/13/24
metoprolol succinate 25 mg tablet,extended release 24 hr 25 mg PO DAILY #30 tabs 05/13/24
rosuvastatin 20 mg tablet 20 mg PO QPM #30 tabs 05/13/24
cyanocobalamin (vitamin B-12) 1,000 mcg tablet 1,000 mcg PO DAILY 08/04/24
ferrous sulfate 325 mg (65 mg iron) tablet 325 mg PO DAILY 08/04/24
folic acid 1 mg tablet 1 mg PO DAILY 08/04/24
furosemide 40 mg tablet 20 mg PO DAILY 08/04/24
spironolactone 25 mg tablet 25 mg PO DAILY 08/04/24
thiamine HCl (vitamin B1) 100 mg tablet 100 mg PO DAILY 08/04/24
Review of Systems
-
History Source: Patient
Constitutional: Reports No Symptoms
EENT: Reports No Symptoms
Respiratory: Reports Cough and Trouble Breathing
Cardiac: Reports No Symptoms
Abdomen/GI: Reports Nausea and Vomiting
: Reports No Symptoms
Musculoskeletal: Reports No Symptoms
Skin: Reports No Symptoms
Neurological: Reports No Symptoms
Endocrine: Reports No Symptoms
Hematologic/Lymphatic: Reports No Symptoms
Psych: Reports No Symptoms
Physical Exam
Vital Signs
Vital Signs
Temp Pulse Resp BP Pulse Ox
97.5 F 116 22 82/73 97
08/04/24 13:13 08/04/24 15:45 08/04/24 15:45 08/04/24 15:37 08/04/24 15:45
Physical Exam
General: Well Developed, Well Nourished, No Apparent Distress, Comfortable and Conversant
HEENT: NormoCephalic, Moist mucous membranes, Atraumatic, [place] Conjunctivae, Nose Appears Normal, Ears Appear Normal and Hearing Impaired
Respiratory: Clear, Crackles and Decreased Breath Sounds
Cardiac: S1/S2, Regular Rhythm and Tachycardia; No Murmur, Rub or Gallop
Breast: Deferred by me
GI: Soft, Non Tender, Non Distended and Normal Bowel Sounds; No Organomegaly
Rectal: Deferred by Provider
Genito-urinary: Deferred by me
Musculoskeletal: No Clubbing, No Cyanosis and No Edema
Skin: Warm and IV/Catheter Site; No Rash
Neuro: Awake, Alert, AO x 3 and Nonfocal/grossly intact
Psych: Calm and Intact Judgment/Insight
Laboratory Results
-
08/04/24 13:
08/04/24 13:
Laboratory Results
Total Bilirubin 0.9 mg/dl (0.2-1.3) 08/04/24 13:
AST 22 U/L (17-59) 08/04/24 13:
ALT 30 U/L (0-50) 08/04/24 13:
Alkaline Phosphatase 71 U/L (38-126) 08/04/24 13:
Troponin I 0.961 ng/ml H* 08/04/24 13:
Data Reviewed
-
Diagnostic Radiology: Report Reviewed by me (CXR: Mild pulmonary edema with small bilateral pleural effusions.)
CT Scan: Report Reviewed by me (Chest: 1. No evidence of pulmonary embolism. 2. Mild pulmonary edema with moderate/large bilateral pleural effusions and adjacent compressive atelectasis.)
Medical Tests (Nuc Med, Echo, EKG etc): Report Reviewed by me (EKG: SINUS TACHYCARDIA LEFT AXIS DEVIATION ANTERIOR INFARCT (CITED ON OR BEFORE 11-MAY-2024))
Lab Data: Labs Reviewed by me (BNP 98273, Trop 0.961, BUN 53, Creat 1.5, CO2 14)
Impression/Plan
-
IMPRESSION/PLAN:
#HFrEF
BNP >92806
Trop 0.961
CXR: Mild pulmonary edema with small bilateral pleural effusions.
Chest CT: 1. No evidence of pulmonary embolism.
2. Mild pulmonary edema with moderate/large bilateral pleural effusions and adjacent compressive atelectasis.
EKG: SINUS TACHYCARDIA
LEFT AXIS DEVIATION
ANTERIOR INFARCT (CITED ON OR BEFORE 11-MAY-2024)
ECHO (05/11/2024): Severely reduced left ventricular systolic function.
Left ventricular ejection fraction is 10-15% by Obregon's method.
The anterolateral morin contract the best. The rest of the LV is akinetic to severely hypokinetic.
Moderate mitral regurgitation.
Estimated PASP 40-45 mmHg with estimated RA of 3 mmHg.
- Admit to IMU
- hold furosemide
- daily weights
- Consult Cardiology
- Consul IR
#acute kidney injury
BUN 53, Creat 1.5
- monitor BMP
#hypocapnia
- bicarb push
- monitor BMP
#CAD
- continue aspirin, folic acid and rosuvastatin
#benign hypertension
- hold furosemide and spironolactone
- continue metoprolol
#DMI II
- AccuCheck AC & HS
- hold metformin
- SSI
Code status: full code
DVT Prophylaxis: SCDs
--- NOTE | 2024-08-04 18:01 | CON.CAR ---
Consultation
Consultation Request
Date/Time Consultation Requested: 08/04/24 @ 5:45 PM
Date/Time Consultation Performed: 08/04/24 @ 6:00 PM
Requesting Provider: Kymberly Contreras
Performing Provider: Marcelino Pan MD
Reason for Consultation: CHF
Medical History
-
Chief Complaint: BAI
History of Present Illness:
69 y/o male (known to Dr. Sousa) with multivessel unrevascularizable CAD, HTN, DM, and recently diagnosed HFrEF (EF 10-15%) in May 2024 who presents with dyspnea and orthopnea. He was last seen in our office on 06/22/[address] Sousa at which time
he appeared euvolemic and was on good medical therapy for HFrEF. Lisinopril 2.5 was added. BP in office 96/54. He reports that since then things have been going downhill. He has been extremely fatigued and intermittently nauseous. Weight has
been stable at 151 pounds. For the past 1 week he has been struggling with shortness of breath and inability to lay flat. He has also had intermittent vomiting. His blood pressures have been running 70s�80s/50s�60s so on Saturday he stopped all of
his medications. Today he finally decided to come to the ER because he still did not feel well. ECG here shows sinus tachycardia (HR 116) with left axis deviation and old anterior infarct. CXR with mild pulmonary edema and bilateral pleural
effusions. Chest CT with moderate/large bilateral pleural effusions and mild pulmonary edema. No PE. Labs notable for hemoglobin 11, creatinine 1.5, Na 131, CO2 14, Trop 0.961 (2.0 on prior admission), BNP >27k (previously 9k). He denies recent
illness, palpitations, leg swelling, or dietary indiscretion.
LHC (05/12/2024, [facility]): 80% proximal LAD, 80% mid LAD, 80% mid LCx, 80% proximal RCA, diffusely diseased vessels throughout with no surgical targets.
Echo (05/11/2024): LVEF 10-15%, severe LV hypokinesis with sparing of the anterolateral wall, moderate MR, PASP 40-45 mmHg
Past Medical History
Past Medical History: CAD, CHF, HTN and NIDDM
Social History
Tobacco: Former Smoker (quit 7-8 years)
Alcohol: None
Drug: None
Personal:
Living: With Family
Family History
Family History: Adopted
Allergies / Home Medications
Allergy/AdvReac Type Severity Reaction Status Date / Time
No Known Allergies Allergy Verified 08/04/24 13:19
�Medication �Instructions �Recorded �Confirmed �Type
metformin 1,000 mg tablet 1,000 mg PO BID Diabetes 05/11/24 08/04/24 History
aspirin 81 mg chewable tablet 81 mg PO DAILY #30 tabs 05/13/24 08/04/24 Rx
metoprolol succinate 25 mg 25 mg PO DAILY #30 tabs 05/13/24 08/04/24 Rx
tablet,extended release 24 hr
rosuvastatin 20 mg tablet 20 mg PO QPM #30 tabs 05/13/24 08/04/24 Rx
cyanocobalamin (vitamin B-12) 1,000 mcg PO DAILY 08/04/24 08/04/24 History
1,000 mcg tablet
ferrous sulfate 325 mg (65 mg 325 mg PO DAILY 08/04/24 08/04/24 History
iron) tablet
folic acid 1 mg tablet 1 mg PO DAILY 08/04/24 08/04/24 History
furosemide 40 mg tablet 20 mg PO DAILY 08/04/24 08/04/24 History
spironolactone 25 mg tablet 25 mg PO DAILY 08/04/24 08/04/24 History
thiamine HCl (vitamin B1) 100 mg 100 mg PO DAILY 08/04/24 08/04/24 History
tablet
Review of Systems
-
All other systems: Negative unless noted
Physical Exam
Vital Signs
Temp Pulse Resp BP Pulse Ox
97.5 F 116 22 82/73 97
08/04/24 13:13 08/04/24 15:45 08/04/24 15:45 08/04/24 15:37 08/04/24 15:45
Lab Results
08/04/24 13:26
08/04/24 13:26
Troponin I 0.961 ng/ml H* 08/04/24 13:26
[id number] Pept > 88392 pg/ml 08/04/24 14:53
Physical Exam
General: Comfortable
Respiratory: Other (Decreased breath sounds at bilateral bases and crackles in the mid mckeon)
Cardiac: S1/S2, Regular Rhythm and Other (Distal extremities are cool, radial pulses thready); Negative Murmur or Peripheral Edema
GI: Non Distended
Neuro: AO x 3
Impression / Plan
-
69 y/o male (known to Dr. Sousa) with multivessel unrevascularizable CAD, HTN, DM, and recently diagnosed HFrEF (EF 10-15%) in May 2024 who presents with dyspnea and orthopnea with concern for low output heart failure.
Concern for cardiogenic shock
-He examines cool, is tachycardic, has a narrow pulse pressure, and low CO2 (concerning for acidosis)
-Check ABG and lactate. If acidotic or elevated lactate, will empirically start dobutamine 2.5 mcg
-If he cannot tolerate dobutamine due to hypotension, will switch to norepinephrine
-Hold off on diuresis until he has better cardiac output
-NPO pMN for tentative RHC tomorrow
-Needs intensive monitoring and telemetry
HFrEF, acute on chronic
-Echo (05/11/2024): LVEF 10-15%, severe LV hypokinesis with sparing of the anterolateral wall, moderate MR, PASP 40-45 mmHg
-Concern for cardiogenic shock as above.
-Inotropes now with goal of inotrope-assisted diuresis once cardiac output improves
-Hold all home GDMT
Multivessel CAD
-LHC (05/12/2024, [facility]): 80% proximal LAD, 80% mid LAD, 80% mid LCx, 80% proximal RCA, diffusely diseased vessels throughout with no surgical targets.
-Continue ASA and statin
Troponin elevation due to nonischemic myocardial injury
-Suspect due to severe HF exacerbation with low-output and known multivessel CAD
-Trop lower than last admission. ECG nonischemic and no chest pain.
-Trend trop to peak
Data Reviewed
-
EKG: Tracing Personally Visualized and interpreted
Radiology: Image Personally Visualized and interpreted
CT Scan: Report Reviewed by me, Discussed with Physician, Discussed with Patient and Discussed with Family
Medical Tests (Nuc Med, Echo etc): Report Reviewed by me, Discussed with Physician, Discussed with Nurse, Discussed with Patient and Discussed with Family
Labs: Labs Reviewed by me, Discussed with Physician, Discussed with Nurse, Discussed with Patient and Discussed with Family
Old Records: Reviewed
Critical Care Time (in minutes): 47
[2024-08-04] MEDS: SODIUM BICARBONATE 50 MEQ IV (18:08)
--- NOTE | 2024-08-04 18:08 | W.PN.UPDATE ---
Update Note
Progress Note Update
This is an addendum to the H&P written by amber Del Cid on 08/04/2024. Patient seen and examined independently with CONDENSER WINDER.
69-year-old male past medical history of HFrEF with EF of 10 to 15%, diabetes, CAD, prior NSTEMI, hypertension presenting with shortness of breath. No cough or lower extremity edema. No chest pain.
Patient is hypotensive blood pressure of 82/73 tachycardic and has been displaced for the past 6 weeks. EKG shows sinus tachycardia, left axis deviation. Troponin 0.961 less than previously. Metabolic acidosis on labs. Patient with CKD creatinine
at baseline.
CT chest shows no evidence of pulmonary embolism. There is mild pulm edema with moderate/large bilateral pleural effusions
Difficult situation as patient hypotensive with acute CHF exacerbation/bilateral pleural effusions. Likely end-stage heart failure. Hold spironolactone, metoprolol. IR for thoracentesis. Cardiology consulted.
[2024-08-04 18:36] LABS: B.E. -2.5 mmol/L; HCO3 19.8 mmol/L (21-28); O2 Saturation % 99.1 % (94-98); PCO2 26 mmHg (35-48); PO2 96 mmHg (83-108); pH 7.49 (7.35-7.45)
[2024-08-04 19:36] LABS: Lactic Acid 4.2 mmol/L (0.7-2.0)
[2024-08-04] MEDS: DOBUTREX 500 MG 250 IV (20:00)
[2024-08-04] MEDS: ZOFRAN 4 MG IV (20:41)
[2024-08-04] MEDS: CRESTOR 20 MG PO (22:06)
[2024-08-04 22:30] LABS: Lactic Acid 3.7 mmol/L (0.7-2.0)
[2024-08-05] VITALS (110 sets, daily range): BP systolic 67–158; BP diastolic 49–131; BMI 24.5
[2024-08-05 05:55] LABS: Hematocrit 29.5 % (39.0-52.0); Hemoglobin 9.9 g/dL (13.0-18.0); Mean Corp Hgb Conc. 33.6 g/dL (33.0-37.0); Mean Corpuscular Hgb 28.4 pg (27.0-31.0); Mean Corpuscular Volume 84.5 fL (80.0-94.0); Mean Platelet Volume 11.1 fL (7.4-10.4); Platelet Count 179 10^3/uL (130-400); Red Blood Cell Count 3.49 10^6/uL (4.70-6.10); Red Cell Dist. Width 15.1 % (11.5-14.5); White Blood Cell Count 11.5 10^3/uL (4.8-10.8)
[2024-08-05 06:22] LABS: Blood Urea Nitrogen 55 mg/dl (9-20); Calcium 9.4 mg/dl (8.4-10.2); Carbon Dioxide 16 mmol/L (22-30); Chloride 99 mmol/L (98-107); Estimated Creatinine Clearance 45 ml/min; Glucose 217 mg/dl (70-99); HDL Cholesterol 32 mg/dl; LDL Cholesterol, Calculated 55 mg/dl; Lactic Acid 4.3 mmol/L (0.7-2.0); Potassium 4.5 mmol/L (3.5-5.1); Sodium 131 mmol/L (135-145); Total Cholesterol 118 mg/dl (50-199); Triglyceride 158 mg/dl (10-149); Very Low Density Lipoprotein 31 mg/dl (0-30); eGFR 53.74
--- NOTE | 2024-08-05 06:32 | PTCARENOTE ---
pt admitted from the ED. pt is AAOx3- able to make needs known. RA 94%, currently on a dobutamine gtt, to be tapered to keep SBP >95. pt is SOB on exertion, orthopneic as well. pt also gets motion sickness, with any movement pt does get nausea and
dry heaves. ST on the monitor 120s-130s. urinal provided at bedside. trending lactic acid and troponin, next level due for 10am. care ongoing.
--- NOTE | 2024-08-05 07:49 | PTCARENOTE ---
Rec'd pt from nightshift. Remains hypotensive on dobutamine. Titrating q15 min as ordered. Current Sys 80. Dobutamine at 14mcg. Updated Dr. Byrd and Cardiology team. RTC from ELVIRA RN. Plan to come to bedside for thoracentesis this AM prior to
Cardiac Cath. Pt remains symptomatic with nausea. On RA but feels short of breath. Awaiting update from labor relations supervisor regarding time for Right heart cath.
--- NOTE | 2024-08-05 08:06 | PTCARENOTE ---
Pt complaining of heart burn. Stat EKG ordered per protocol. Updated Dr. Byrd and cardiology team.
[2024-08-05] MEDS: LEVOPHED 250 IV ×2 (08:39→14:43)
[2024-08-05] MEDS: FOLVITE 1 MG PO (08:40)
[2024-08-05] MEDS: VITAMIN B1 100 MG PO (08:40)
[2024-08-05] MEDS: VITAMIN B-12 1000 MCG PO (08:40)
[2024-08-05] MEDS: FEOSOL 325 MG PO (08:40)
[2024-08-05] MEDS: LOW STRENGTH ASPIRIN 81 MG PO (08:40)
--- NOTE | 2024-08-05 08:54 | PTCARENOTE ---
Pt with ICU transfer orders. Will transfer once bed available. Started levo as ordered. Remains hypotensive
[2024-08-05] MEDS: DOBUTREX 500 MG 250 IV ×2 (09:23→14:43)
--- NOTE | 2024-08-05 09:29 | PTCARENOTE ---
Pt on Levo and dobumatime being titrated as ordered. Remains hypotensive with Sys 75. ICU orders in place. For Right heart cath today and thoracentesis
--- NOTE | 2024-08-05 09:39 | W.PN.CD ---
Today's Communication / Plan
-
Critically ill
Right heart cath
Move to ICU
Add Levophed
Arranging transfer to [facility]/I have discussed case with Dr. Pedraza (heart failure at [facility])
Thoracentesis if enough fluid to tap (CXR to my eye not large effusion but CT suggests mod/large effusions)
Over 68 min spent on patient care this morning so far.
Impression / Plan
-
69 y/o male (known to Dr. Sousa) with multivessel unrevascularizable CAD, HTN, DM, and recently diagnosed HFrEF (EF 10-15%) in May 2024 who presents with dyspnea and orthopnea with concern for low output heart failure.
Concern for cardiogenic shock
-He examines cool, is tachycardic, has a narrow pulse pressure, and low CO2 (concerning for acidosis)
- ABG and lactic acid are compatible with cardiogenic shock.
-If he cannot tolerate dobutamine due to hypotension, will add norepinephrine
-Hold off on diuresis until he has better cardiac output
-NPO RHC today
- Move to ICU
- Will begin transfer process to [facility] for a higher level of care, may need mechanical support (LVAD)
- Reviewed issues with pt/. I updated nurse/interventional cardiology/hospitalist
HFrEF, acute on chronic
-Echo (05/11/2024): LVEF 10-15%, severe LV hypokinesis with sparing of the anterolateral wall, moderate MR, PASP 40-45 mmHg
-Concern for cardiogenic shock as above.
-Inotropes now with goal of inotrope-assisted diuresis once cardiac output improves
-Hold all home GDMT
Multivessel CAD
-LHC (05/12/2024, [facility]): 80% proximal LAD, 80% mid LAD, 80% mid LCx, 80% proximal RCA, diffusely diseased vessels throughout with no surgical targets.
-Continue ASA and statin
Troponin elevation due to nonischemic myocardial injury
-Suspect due to severe HF exacerbation with low-output and known multivessel CAD
-Trop lower than last admission. ECG nonischemic and no chest pain.
-Trend trop to peak
Subjective: OK at rest, some dyspnea. Mentation normal.
Physical Exam
Vital Signs/Labs
Vital Signs
Temp Pulse Resp BP Pulse Ox
97.5 F 123 24 75/60 93
08/05/24 05:16 08/05/24 09:24 08/05/24 09:24 08/05/24 09:24 08/05/24 09:24
08/04/24 08/05/24 08/06/24
06:59 06:59 06:59
Actual Weight 71 kg
08/05/24 05:46
08/05/24 05:46
Triglycerides 158 mg/dl (10-149) H 08/05/24 05:46
LDL Cholesterol, Calc 55 mg/dl 08/05/24 05:46
VLDL Cholesterol, Calc 31 mg/dl (0-30) H 08/05/24 05:46
HDL Cholesterol 32 mg/dl 08/05/24 05:46
08/04/24
14:53
[id number] Pept > 68705
LAB Results
08/04/24 08/04/24 08/05/24
13:26 21:43 04:25
Troponin I 0.961 H* 1.780 H* 2.570 H* D
Physical Exam
Constitutional: No acute distress
EENT: Anicteric
Cardiovascular: Rhythm & rate is regular (rapid) and Pedal edema is absent
Respiratory: Labored respirations (mildly tachypnic)
GI: Soft and Distention absent
Neuro/Psych: AO x 3 and Motor deficits absent
Data Reviewed
-
Date of Service: August 05, 2024
--- NOTE | 2024-08-05 09:46 | PTCARENOTE ---
Pt remains on dobutamine and Levo. BP currently at goal at 91 systolic. Plan for thoracentesis and right heart cath with likely plan for transfer to [facility]
[2024-08-05 11:01] LABS: Lactic Acid 5.2 mmol/L (0.7-2.0)
--- NOTE | 2024-08-05 11:04 | PTCARENOTE ---
Updated Maxim Johnson and Dr. Byrd with critical labs. IRAD currently at bedside with [employer] then pt will go to sleep lab technologist
--- NOTE | 2024-08-05 11:06 | CM ---
Patient WIth Dx HF, Concern for cardiogenic shock. Receiving Dobutamine and Levophed gtts. Plan thoracentesis today, plan RHC today. Plan transfer to ICU. Plan possible transfer to [facility] after RHC.
Messages from Zoila Byrd & Lars; request for emergent transfer to [facility] after RHC. MD spoke with Dr Yissel Pedraza.
[facility] [place] [facility] [phone], fax [phone]); faxed them facesheet so they can start the transfer process.
Met with patient, SO Kera and daughter Stefany;
patient LUMBEE and did not participate in the conversation.
The patient resides with his SO in a 2 story house with 1 CHARLES.
He was independent in ADLs and ambulation, however recently 'tired and winded' and was limited doing stairs to 2nd floor bedroom to once/day.
His only DME is hearing aides.
No prior VN or SNF.
PCP - Bert Kelly
Pharmacy - [facility]
Plan probable transfer to [facility].
--- NOTE | 2024-08-05 11:15 | PTCARENOTE ---
IRAD Note: Saw patient at bedside for Thoracentesis. Patient identified. allergies verified. ICU nurse present at the bedside to manage Dobutamine and Levophed drips. consent obtained by Aarti Damico from patient. Left lung ultrasound done by Aarti Damico
CARLEY. site marked. Site cleaned and prepped. Time out done at 1103. local given. catheter in. drained 1200ml clear yellow fluid. band aid to site. Urgent portable CXR ordered. report given to ICU nurse at the bedside. no order for fluid analysis
found.
--- NOTE | 2024-08-05 12:54 | W.PN.HOSP.TC ---
Addendum entered and electronically signed by Rob Byrd MD 08/07/24 18:13:
[id number]
Original Note:
Today's Communication/Plan
-
shock treatment with pressors, wean as tolerated; goal systolic >80
Monitor trops, lactate
RHC
hold GDMT
transfer to [place]
Patient desire to be full code
Assessment / Plan
Assessment / Plan
Physical Exam
Constitutional: No acute distress
EENT: Anicteric
Cardiovascular: Rhythm & rate is regular (rapid) and Pedal edema is absent
Respiratory: Labored respirations (mildly tachypneic)
GI: Soft and Distention absent
Neuro/Psych: AO x 3 and Motor deficits absent
69 y/o male (known to Dr. Sousa) with multivessel unrevascularizable CAD, HTN, DM, and recently diagnosed HFrEF (EF 10-15%) in May 2024 who presents with dyspnea and orthopnea with concern for low output heart failure.
Cardiogenic shock
Pleural effusions
-on dobutamine and norepinephrine, titrate for systolic greater than 80 SBP
-Hold off on diuresis until he has better cardiac output
-Right heart cath today
-Monitor lactate, troponins, LFTs, renal function
� Left thoracentesis today 08/05, can attempt right tomorrow
HFrEF, acute on chronic
-Echo (05/11/2024): LVEF 10-15%, severe LV hypokinesis with sparing of the anterolateral wall, moderate MR, PASP 40-45 mmHg
-See plan above
-Inotropes now with goal of inotrope-assisted diuresis once cardiac output improves
-Hold all home GDMT
Multivessel CAD
-LHC (05/12/2024, [facility]): 80% proximal LAD, 80% mid LAD, 80% mid LCx, 80% proximal RCA, diffusely diseased vessels throughout with no surgical targets.
-Continue ASA and statin
#Elevated troponin
� Secondary to nonischemic myocardial injury
-Suspect due to severe HF exacerbation with low-output and known multivessel CAD
-Trend trop to peak
#Hyponatremia
� Secondary to hypovolemia
� Monitor with resuscitation
#Anion gap metabolic acidosis
� Secondary to shock, elevated lactate
� Monitor with resuscitation
#Elevated lactate
� Secondary to above, shock
#EDIS
� Monitor with resuscitation
� Most likely cardiorenal
#Hypertension
� Hold diuretics, spironolactone in setting of shock
� Hold total
#Diabetes type 2
� Insulin sliding scale
� Hold metformin
#DVT prophylaxis
� HSQ
Dispo: RHC and DC to [facility]
More than 30 minutes spent in discharge including
Final examination of the patient
Summarizing hospital stay
Instructions for continuing care to all relevant caregivers
Preparation of discharge records, prescriptions, and referral forms
Total time spent (36 in minutes):
Anticipated Discharge: Today
Subjective/Interval History
-
Date of Service: August 05, 2024
pressor requirements increasing; Thora today
Objective Data
-
Labs:
Laboratory Results
08/05/24
05:46
WBC 11.5 H
Hgb 9.9 L
Hct 29.5 L
Plt Count 179
Sodium 131 L
Potassium 4.5
Chloride 99
Carbon Dioxide 16 L
BUN 55 H
Creatinine 1.4 H
Glucose 217 H
Calcium 9.4
Vital Signs:
Vital Signs
Temp Pulse Resp BP Pulse Ox
97.7 F 138 23 84/68 94
08/05/24 11:05 08/05/24 11:50 08/05/24 11:50 08/05/24 11:50 08/05/24 11:50
I&O
08/04/24 08/05/24 08/06/24
06:59 06:59 06:59
Output Total 200 / 200
Balance -200 / -200
Review of Systems
-
History Source: Patient
All other systems: Not reviewed unless documented
Data Reviewed
-
Diagnostic Radiology: Report Reviewed by me
CT Scan: Report Reviewed by me
Labs: Labs Reviewed by me
--- NOTE | 2024-08-05 13:05 | W.DS.TRANS ---
DC Summary - [facility]
-
Discharge Instructions:
Instructions:
Stand-Alone Forms:
Changes to Home Medications: Yes
Discharge Medications:
DC Medications w/original date entered in [employer]
metformin 1,000 mg tablet 1,000 mg PO BID Diabetes 05/11/24
aspirin 81 mg chewable tablet 81 mg PO DAILY #30 tabs 05/13/24
metoprolol succinate 25 mg tablet,extended release 24 hr 25 mg PO DAILY #30 tabs 05/13/24
rosuvastatin 20 mg tablet 20 mg PO QPM #30 tabs 05/13/24
cyanocobalamin (vitamin B-12) 1,000 mcg tablet 1,000 mcg PO DAILY Supplement 08/04/24
ferrous sulfate 325 mg (65 mg iron) tablet 325 mg PO DAILY Supplement 08/04/24
folic acid 1 mg tablet 1 mg PO DAILY Supplement 08/04/24
furosemide 40 mg tablet 20 mg PO DAILY Fluid Retention/Swelling 08/04/24
spironolactone 25 mg tablet 25 mg PO DAILY Fluid Retention/Swelling 08/04/24
thiamine HCl (vitamin B1) 100 mg tablet 100 mg PO DAILY Supplement 08/04/24
Home Medication Changes
Pending Results: No
--- NOTE | 2024-08-05 13:36 | ITS.CL.CATH ---
Security Engineer - Catheterization
Cardiac Catheterization
Procedure Report:
RIGHT HEART CATHETERIZATION
Date of Procedure: 08/05/2024
Referring: Acosta Sousa M.D.
INDICATION: Advanced congestive heart failure.
ACCESS:
8 Indonesian right internal jugular vein using a modified Seldinger technique with a micropuncture kit under ultrasound guidance. Ultrasound image obtained.
CATHETERS:
7.5 Indonesian Arlington-Krissy.
PROCEDURE:
The patient was prepped and draped in standard sterile fashion. The area for right internal jugular access was anesthetized with 1% lidocaine. The right internal jugular vein was identified under ultrasound. Using a modified Seldinger technique,
the right internal jugular vein was punctured using a micropuncture needle and a micropuncture wire was advanced into the right atrium, confirmed on fluoroscopy. The inner micropuncture sheath and wire were removed and a standard J-wire was
advanced through the micropuncture outer sheath. The outer sheath was removed and A 8 Indonesian sheath was inserted into the internal jugular vein. A 7.5 Indonesian Arlington-Krissy catheter was advanced through the sheath into the superior vena cava. An SVC
oxygen saturation was drawn. The balloon wedge catheter was advanced into the pulmonary artery and a pulmonary artery oxygen saturation was drawn. Arterial oxygen saturation was assumed from pulse oximetry. Cardiac output was calculated using the
Adrian equation. Cardiac output was also obtained using thermodilution. The PA, wedge, RV and RA pressures were measured. The Arlington-Krissy catheter was locked in place using the supplied cover. The 8 Indonesian sheath was sutured in place.
Weight (kg): 70.8
PA (s/d/x mmHg): 57/39/45
PCWP (a/v/x mmHg): 43/49/42
RV (s/x mmHg): 57/21
RA (a/v/x mmHg): 24/
SVC SvO2 (%): 51.5
IVC SvO2 (%): Not obtained.
RA SvO2 (%): Not obtained.
RV SvO2 (%): Not obtained.
PA SvO2 (%): 39.1
SaO2 (%): 96.0 (assumed)
Hbg (g/dL): 10.0
Adrian
CO (liters/minute): 3.67
CI (liters/minute/m2): 2.02
Thermodilution
CO (liters/minute): 2.67
CI (liters/minute/m2): 1.47
TPG (mmHg): 3
PVR (Calero Units): 1.12
AVO2 Difference (Volume %): 7.73
Radiation (mGy): 10.71
DAP (cm2.Gy): 1.5181
Fluoroscopy time (minutes): 0.6
CONCLUSION:
1. Severely elevated filling pressures (PCWP = 42 mmHg at 70.8 kg).
2. Severely depressed systolic function (cardiac index 1.47 L/min/m� by thermodilution), in combination with severe elevation of filling pressures, consistent with cardiogenic shock.
3. Mild to moderate, postcapillary pulmonary hypertension (mean PA = 45 mmHg, PCWP = 42 mmHg, cardiac output = 2.67 L/min, PVR = 1.12 Wood units), WHO group 2.
RECOMMENDATIONS:
1. Expectant management after right heart catheterization via right internal jugular approach.
2. Titration of inotropes and vasopressors as indicated for cardiac index >1.8 L/min/m�.
3. Aggressive diuresis as hemodynamics will tolerate.
Copy to: Acosta Sousa M.D., Bert Kelly IV, M.D.
Luis Baig D.O., FACC, FACP
--- NOTE | 2024-08-05 14:25 | CON.INTV ---
Consultation
Consultation Request
Date/Time Consultation Requested: 08/05/2024
Date/Time Consultation Performed: 08/05/2024
Requesting Provider: Dr. Byrd
Performing Provider: Dr. Chen
Reason for Consultation: Hypotension/Cardiogenic shock
Medical History
-
Chief Complaint: SOB + chest pain
History of Present Illness:
69-year-old M with PMHx of ICM/chronic HFrEF, severely calcific multivessel CAD, DM type II and mixed hyperlipidemia who p/w SOB and chest pain. He felt nauseous and vomited upon standing RATE EXAMINER. In the ER he was afebrile, with UT 118, RR 24, BP
93/67 and SpO2 100% on RA. Labs showed Hb 11, Na 131, sHCO3 14 with AG 21, Cr 1.5, glucose 280, lactate 4.2, initial troponin 0.961, and proBNP>27k. Initial CXR showed acute pulmonary/interstitial edema, and subsequent CTA chest was negative for an
acute PE, and showed bilateral moderate-large pleural effusions with compressive atelectasis, with severe coronary calcification. He was admitted to the IMU on 08/04/2024 where he has been managed since. SBP remained in the low 80s and dobutamine
was started in the IMU. Unfortunately his BP conntinued to decline, and levophed was started. He underwent a left-sided thoracentesis removing 1.2L of clear yellow pleural fluid. Pt was then TRX here to the ICU for further care. He then
underwent a RHC showing severe left sided heart failure with PCWP: 42mmHg with mPAP 45mmHg with CI (via thermodilution): 1.47. Given his severe cardiogenic shock, patient was arranged for transfer to [facility].
When I saw the patient he was resting in bed in no acute distress. Patient's , Kera, at bedside and all questions were answered. Patient is currently on room air, saturating 99% with BP 89/61 on Levophed at 20 and dobutamine at 10. Current
heart rate 132. He denies shortness of breath or chest pain although he did feel much more short of breath earlier today. Currently has some indigestion and nausea. Otherwise denies QUINTEROS, diarrhea, fevers or chills.
PMHx: Chronic HFrEF/ICM, CAD with Hx of ME, HLD, DM type II, hearing + vision impaired
PSHx: Cardiac cath
Past Medical History
Past Medical History: Other (Above as per HPI)
Past Surgical History: Other (Above as per HPI)
Social History
Tobacco: Non-smoker
Alcohol: None
Drug: None
Family History
Family History: Unable to Obtain (Adopted)
Allergies / Home Medications
Allergies
Allergy/AdvReac Type Severity Reaction Status Date / Time
No Known Allergies Allergy Verified 08/04/24 13:19
Home Medications
�Medication �Instructions �Recorded �Confirmed �Last Taken �Type
metformin 1,000 mg tablet 1,000 mg PO BID Diabetes 05/11/24 08/04/24 07/31/24 History
aspirin 81 mg chewable tablet 81 mg PO DAILY #30 tabs 05/13/24 08/04/24 07/31/24 Rx
metoprolol succinate 25 mg 25 mg PO DAILY #30 tabs 05/13/24 08/04/24 07/31/24 Rx
tablet,extended release 24 hr
rosuvastatin 20 mg tablet 20 mg PO QPM #30 tabs 05/13/24 08/04/24 07/31/24 Rx
cyanocobalamin (vitamin B-12) 1,000 mcg PO DAILY Supplement 08/04/24 08/04/24 08/03/24 History
1,000 mcg tablet
ferrous sulfate 325 mg (65 mg 325 mg PO DAILY Supplement 08/04/24 08/04/24 08/03/24 History
iron) tablet
folic acid 1 mg tablet 1 mg PO DAILY Supplement 08/04/24 08/04/24 08/03/24 History
furosemide 40 mg tablet 20 mg PO DAILY Fluid 08/04/24 08/04/24 07/31/24 History
Retention/Swelling
spironolactone 25 mg tablet 25 mg PO DAILY Fluid 08/04/24 08/04/24 07/31/24 History
Retention/Swelling
thiamine HCl (vitamin B1) 100 mg 100 mg PO DAILY Supplement 08/04/24 08/04/24 08/03/24 History
tablet
Review of Systems
-
History Source: Patient
All other systems: Negative unless noted
Vitals / Labs / Diagnostic Testing
Vital Signs
Temp Pulse Resp BP Pulse Ox
98.1 F 136 25 92/72 94
08/05/24 16:48 08/05/24 16:45 08/05/24 16:45 08/05/24 16:45 08/05/24 17:00
Lab Data
08/05/24 05:46
08/05/24 05:46
Diagnostic Testing:
Physical Exam
-
HEENT: Normocephalic and Anicteric
Cardiovascular: S1/S2, Peripheral Edema (negative) and Other (Tachycardic)
Respiratory: Wheeze (negative), Rales (bilateral), Rhonchi (negative) and Non-Labored Respirations
GI: Soft, Non Distended, Non Tender and Normal Bowel Sounds
Neurology: AO x 3 and Tremors (negative)
Skin: Warm and Dry
General: Respiratory Distress (negative), Comfortable, Fever (negative) and Chills (negative)
Assessment
-
Assessment: 69-year-old M with PMHx of ICM/chronic HFrEF, severely calcific multivessel CAD, DM type II and mixed hyperlipidemia who p/w SOB and chest pain. He felt nauseous and vomited upon standing RATE EXAMINER. In the ER he was afebrile, with UT 118,
RR 24, BP 93/67 and SpO2 100% on RA. Labs showed Hb 11, Na 131, sHCO3 14 with AG 21, Cr 1.5, glucose 280, lactate 4.2, initial troponin 0.961, and proBNP>27k. Initial CXR showed acute pulmonary/interstitial edema, and subsequent CTA chest was
negative for an acute PE, and showed bilateral moderate-large pleural effusions with compressive atelectasis, with severe coronary calcification. He was admitted to the IMU on 08/04/2024 where he has been managed since. SBP remained in the low 80s
and dobutamine was started in the IMU. Unfortunately his BP conntinued to decline, and levophed was started. He underwent a left-sided thoracentesis removing 1.2L of clear yellow pleural fluid. Pt was then TRX here to the ICU for further care.
He then underwent a RHC showing severe left sided heart failure with PCWP: 42mmHg with mPAP 45mmHg with CI (via thermodilution): 1.47. Given his severe cardiogenic shock, patient was arranged for transfer to [facility].
Chronic conditions RATE EXAMINER: Chronic HFrEF/ICM, CAD with Hx of ME, HLD, DM type II, hearing + vision impaired
Impression:
#Acute HFrEF exacerbation
#Cardiogenic shock
#Lactic acidosis due to above
#Elevated troponin likely due to demand ischemia
#Leukocytosis
#Acute anemia
#Acute respiratory alkalosis
#Hyponatremia
#EDIS (baseline Cr: 1.1-1.2)
#DM type II (uncontrolled with HbA1C: 8.6 on 05/11/2024) c/b hyperglycemia
#Post-capillary pulmonary hypertension
#MV-CAD
Plan:
- Unfortunately we are unable to diurese this man due to cardiogenic shock with hypotension on levophed + dobutamine
- LVEF was 25% on recent LHC via left ventriculography on 05/12/2024; on echo from 05/11/2024 his LVEF was 10-15% with moderate MR
- Continue levophed and dobutamine, aiming for MVO2>65-70, MAP>65 and goal HR<110-120 (currently HR is 132)
- Monitor for arrhythmias while on dobutamine
- Cardiology on board and recs appreciated
- Awaiting TRX to [facility] for consideration of mechanical support device
- Continue to trend lactate until <2mmol/L
- Hold GDMT for now given shock state
- Continue to trend troponin until it peaks
- Pain control
- Trend sNa level, likely low from beginning of cardiorenal syndrome with hyperaldosteronism
- Trend sCr and monitor strict I/O, trend UOP and renally dose all meds
- Trend WBC, which is likely elevated from acute stress and not an infection as he is non-toxic appearing, and on room air breathing comfortably, with SpO2 99%
- No need for ABx at this time unless he spikes a fever, in which case he should get perales-Cx and then consider starting broad spectrum at that point
- Anti-emetics as needed, just beware of cumulative dosing given of zofran as his QTc is prolonged (537ms via EKG from 08/05/2024)
- Will give the pt a dose of pepcid prior to traveling via helicopter as he is having reflux right now
- Continue ASA + statin
- Maintain SpO2 >90-94% using supplemental O2 if needed
- Replete electrolytes with K>4, Mg>2
- Maintain euglycemia with goal BG 140-180; would start q6hr ISS moderate resistance
- Trend H/H and transfuse if needed to keep Hb>8g/dL; keep plt>20k, unless there is concern for bleeding then keep plt>50k
- prn nebulized bronchodilators - not currently bronchospastic
- Incentive spirometer encouraged 10x per hour for at least 4 hrs a day
- DVT ppx: HSQ
Patient is being transferred to [facility]. Continue ICU level care until patient is transferred.
Patient was seen and evaluated on 08/05/2024.
Critical care statement: A total of 40 minutes of critical care time was provided for this patient today. This includes management of unstable vital signs, evaluation of the patient at bedside, reviewing the patient's pertinent medical records
including radiographs, microbiology, laboratory evaluations, and discussion with primary team, consultants, pharmacy, nutrition, physical therapy, case management, charge nurse, critical care nursing, and respiratory therapy.
--- NOTE | 2024-08-05 15:26 | PTCARENOTE ---
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
PA cath leveled, calibrated, all waveforms appropriate.
Thermodilution CO/CI upon arrival, CO: 2.87 CI: 1.58
RA spo2 96%, maintaining own airway at this time.
Sinus tach w.o ectopy. Remains on norepi, Dobutamine for SBP of >90.
--- NOTE | 2024-08-05 15:56 | PTCARENOTE ---
[facility] Clark. Pt. is accepted, room number 829. Mode of transport still pending.
[2024-08-05] MEDS: DOBUTREX 250 MG IV (16:05)
[2024-08-05] MEDS: HEPARIN 5000 UNITS SC (16:08)
--- NOTE | 2024-08-05 16:08 | PTCARENOTE ---
Dobutamine/Norepi changed to x2 concentration.
--- NOTE | 2024-08-05 16:43 | PTCARENOTE ---
[facility] accepted pt.
Pt. will fly out in moments, [facility] nurse updated.
Family provided information regarding transfer and plan of care.
--- NOTE | 2024-08-05 17:32 | PTCARENOTE ---
Pt. [place], transfer of care completed.
provided information regarding room number, location, and directions.
All questions answered.
Vitals and airway stable upon transfer of care.
== END 2024-08-05 17:46 | disposition short-term general hospital (02) | DRG 286 ==
LOC: ICU 17:49
PROVIDERS: Internal Medicine Cardiovascular Disease; Nurse Practitioner Family; Radiology Vascular & Interventional Radiology; Student in an Organized Health Care Education/Training Program; ADMITTING PHYSICIAN Hospitalist; ATTENDING PHYSICIAN Internal Medicine; CONSULT PHYSICIAN Internal Medicine Critical Care Medicine; CONSULT PHYSICIAN Student in an Organized Health Care Education/Training Program; EMERGENCY PHYSICIAN Student in an Organized Health Care Education/Training Program; FAMILY PHYSICIAN Family Medicine
PROC: 4A023N6 Measurement of Cardiac Sampling and Pressure, Right Heart, Percutaneous Approach (ICD-10-PCS; 2024-08-05)
PROC: 0W9B3ZZ Drainage of Left Pleural Cavity, Percutaneous Approach (ICD-10-PCS; 2024-08-05)
DX: I11.0 Hypertensive heart disease with heart failure (principal); I50.23 Acute on chronic systolic (congestive) heart failure; R57.0 Cardiogenic shock; E87.1 Hypo-osmolality and hyponatremia; E87.20 Acidosis, unspecified; N17.9 Acute kidney failure, unspecified; E87.4 Mixed disorder of acid-base balance; J91.8 Pleural effusion in other conditions classified elsewhere; I5A Non-ischemic myocardial injury (non-traumatic); I25.10 Atherosclerotic heart disease of native coronary artery without angina pectoris; E86.1 Hypovolemia; E11.9 Type 2 diabetes mellitus without complications; I25.2 Old myocardial infarction; Z87.891 Personal history of nicotine dependence; Z79.84 Long term (current) use of oral hypoglycemic drugs; Z79.82 Long term (current) use of aspirin; Z79.899 Other long term (current) drug therapy; D64.9 Anemia, unspecified; D72.829 Elevated white blood cell count, unspecified; E78.2 Mixed hyperlipidemia; H54.7 Unspecified visual loss; I27.29 Other secondary pulmonary hypertension; I44.7 Left bundle-branch block, unspecified
CPT/HCPCS: 32555; 71045; 71046; 71275; 80048; 80053; 80061; 82805; 83605; 83880; 84484; 85025; 85027; 93005; 93451; 99285; Q9967